=== PATIENT | male | born 1960 | race Caucasian/White ===

== ENCOUNTER 2017-05-16 07:06 | Emergency (ER) | payer BC ==
[2017-05-16 07:21] VITALS: BP 131/96
[2017-05-16] MEDS ORDERED: Doxycycline 100 MG Cap PO ONE (07:23)
[2017-05-16] MEDS ORDERED: Dexamethasone 4 MG Tab PO ONE (07:24)
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
== END 2017-05-16 07:40 | disposition home or self-care (01) ==
LOC: JD.ED 07:06
DX: S61.432A Puncture wound without foreign body of left hand, initial encounter (principal); W45.8XXA Other foreign body or object entering through skin, initial encounter; Z79.899 Other long term (current) drug therapy; E66.9 Obesity, unspecified
CPT/HCPCS: 99283; A9270; J8540

== ENCOUNTER 2018-12-31 21:13 | Emergency (ER) | payer BC ==
[2018-12-31 21:30] VITALS: BP 139/71
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
[2018-12-31] MEDS: HYDROmorphone 1 MG/ML Syringe IM ONE (22:16)
--- NOTE | 2019-01-02 10:16 | CR ---
Left shoulder: Three views of the left shoulder were obtained. Comparison: No prior shoulder study. Mild joint space narrowing is seen within the acromioclavicular joint. Glenohumeral joint appears within normal limits. No fracture or other bony abnormality is seen. Impression: 1. Mild joint space narrowing within the acromioclavicular joint. 2. Left shoulder study is otherwise unremarkable. Diagnostic code #2
== END 2018-12-31 23:33 | disposition home or self-care (01) ==
LOC: JD.ED 21:13 → SUPCPDRO 21:13 → JD.ED 23:33
DX: S46.912A Strain of unspecified muscle, fascia and tendon at shoulder and upper arm level, left arm, initial encounter (principal); F41.9 Anxiety disorder, unspecified; F32.9 Major depressive disorder, single episode, unspecified; F17.210 Nicotine dependence, cigarettes, uncomplicated; Z79.899 Other long term (current) drug therapy; Z88.1 Allergy status to other antibiotic agents; X58.XXXA Exposure to other specified factors, initial encounter
CPT/HCPCS: 73030; 96372; 99283; J1170

== ENCOUNTER 2019-03-30 08:24 | Day surgery (SDC) | payer BC ==
[~2019-03-30 08:24] MED LIST: EPINEPHrine 1 MG/1 ML Amp ONE; Lidocaine 1% 2 ML ONE; Lidocaine 1%/Sod Bicarbonate in NS 8.4% 1 ML Syringe IDERM PRN; Ropivacaine 0.5% 5 MG/ML 30 ML SDV ONE; Sodium Chloride 0.9% 10 ML Syringe FLUSH PRN
[2019-03-30] MEDS: Lactated Ringers 1,000 ML IV SCH ×2 (09:00→12:54)
--- NOTE | 2019-03-30 09:33 | PCM.PREANE ---
Preanesthetic Assessment - Anesthesia/Transfusion/Family Hx Anesthesia History: Prior Anesthesia Reaction Type of Anesthesia Reaction: Excessive Nausea/Vomiting Family History of Anesthesia Reaction: No Transfusion History: No Prior Transfusion(s) Intubation History: Unknown - Review of Systems General: No Symptoms, Fatigue Pulmonary: No Symptoms (TONYA with CPAP, Chew one can/week-last chew yesterday.) Cardiovascular: No Symptoms (History of HTN) Gastrointestinal: No Symptoms (GERD) Neurological: No Symptoms (Degenerative Disk disease L3-L4.) Other: Reports: Easy Bleeding, Liver Problems (elevated LFT's-quit drinking 38 years ago.), Depression, Anxiety - Physical Assessment NPO Status Date: 03/29/19 NPO Status Time: 21:30 Vital Signs: Last Vital Signs Temp 37.2 C 03/30/19 08:30 Pulse 71 03/30/19 08:30 Resp 16 03/30/19 08:30 BP 127/76 03/30/19 08:30 Pulse Ox 94 L 03/30/19 08:30 Height: 1.78 m Weight: 109.316 kg ASA Class: 2 Mental Status: Alert & Oriented x3 Airway Class: Mallampati = 2 Dentition: Reports: Normal Dentition, Caries Thyro-Mental Finger Breadths: 3 Mouth Opening Finger Breadths: 3 ROM/Head Extension: Full Lungs: Clear to Auscultation, Normal Respiratory Effort Cardiovascular: Regular Rate, Regular Rhythm, No Murmurs - Lab Values: Laboratory Last Values MRSA (PCR) Negative 03/22/19 14:59 All lab values reviewed and noted and within acceptable ranges to proceed with scheduled procedure. - Imaging/EKG Impressions: EKG: SR rate= 67 - Allergies Allergies/Adverse Reactions: Allergies Allergy/AdvReac Type Severity Reaction Status Date / Time celecoxib [From Celebrex] Allergy Rash Verified 03/29/19 13:04 - Anesthesia Plan Pre-Op Medication Ordered: None - Acknowledgements Anesthesia Type Planned: General Anesthesia (Left ISB under US guidance for post operative pain control requested by Dr. Babcock.) Pt an Appropriate Candidate for the Planned Anesthesia: Yes Alternatives and Risks of Anesthesia Discussed w Pt/Guardian: Yes Pt/Guardian Understands and Agrees with Anesthesia Plan: Yes PreAnesthesia Questionnaire HEENT History: Reports: Allergic Rhinitis, Impaired Vision Other HEENT History: uses reading glasses Cardiovascular History: Reports: Hypertension Respiratory History: Reports: Sleep Apnea Gastrointestinal History: Reports: GERD, Other (See Below) Other Gastrointestinal History: elevated LFTs Genitourinary History: Reports: Renal Calculus Other Genitourinary History: frequency 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: Reports: None Musculoskeletal History: Reports: Back Pain, Chronic Other Musculoskeletal History: degenerative disc disease Psychiatric History: Reports: Anxiety, Depression Endocrine/Metabolic History: Reports: Obesity/BMI 30+, Vitamin D Deficiency Hematologic History: Reports: Iron Deficiency Immunologic History: Reports: None Oncologic (Cancer) History: Reports: None Dermatologic History: Reports: None - Infectious Disease History Infectious Disease History: Reports: None - Past Surgical History HEENT Surgical History: Reports: Adenoidectomy, Oral Surgery, Tonsillectomy, Other (See Below) Other HEENT Surgeries/Procedures: uvulectomy Cardiovascular Surgical History: Reports: None Respiratory Surgical History: Reports: None GI Surgical History: Reports: Colonoscopy Male Surgical History: Reports: None, Vasectomy Endocrine Surgical History: Reports: None Neurological Surgical History: Reports: Laminectomy Musculoskeletal Surgical History: Reports: Knee Replacement, Shoulder Surgery Other Musculoskeletal Surgeries/Procedures:: L knee arthroscopy, knee surgery, shoulder surgery Oncologic Surgical History: Reports: None Dermatological Surgical History: Reports: None - SUBSTANCE USE Smoking Status *Q: Current Every Day Smoker Recreational Drug Use History: No - HOME MEDS Home Medications: Home Meds Cholecalciferol (Vitamin D3) [Vitamin D3] 1,000 unit PO DAILY 03/29/19 [History] Escitalopram Oxalate 20 mg PO DAILY 03/29/19 [History] Ferrous Sulfate [Iron] 325 mg PO DAILY 03/29/19 [History] Lansoprazole [Prevacid] 15 mg PO DAILY 03/29/19 [History] Losartan Potassium 100 mg PO DAILY 03/29/19 [History] Multivitamin [Daily Multiple Vitamin] 1 tab PO DAILY 03/29/19 [History] Acetaminophen/HYDROcodone [[place] 325-5 MG] 1 - 2 tab PO Q6H PRN #40 tablet 03/30 [Rx] Cyclobenzaprine [Flexeril] 10 mg PO Q12H PRN #30 tab 03/30/19 [Rx] - CURRENT (IN HOUSE) MEDS Current Meds: Current Medications Lactated Ringer's (Ringers, Lactated) 1,000 mls @ 125 mls/hr IV ASDIRECTED JUDI Stop: 03/30/19 23:00 Lidocaine/Sodium Bicarbonate (Buffered Lidocaine 1% In Ns 8.4%) 0.25 ml IDERM ONETIME PRN PRN Reason: Prior to IV Start Stop: 03/30/19 18:00 Sodium Chloride (Saline Flush) 10 ml FLUSH ASDIRECTED PRN PRN Reason: Keep Vein Open Stop: 03/30/19 18:00 Discontinued Medications Epinephrine HCl (Adrenalin) 3 mg .XX ONETIME ONE Stop: 03/30/19 07:01 Epinephrine HCl (Adrenalin) Confirm Administered Dose 1 mg .ROUTE .STK-MED ONE Stop: 03/30/19 07:07 Lidocaine HCl (Xylocaine-Mpf 1%) Confirm Administered Dose 2 mls @ as directed .ROUTE .STK-MED ONE Stop: 03/30/19 07:07 Ropivacaine (Naropin 0.5%) Confirm Administered Dose 30 ml .ROUTE .STK-MED ONE Stop: 03/30/19 07:07
[2019-03-30] MEDS ORDERED: Scopolamine 1.5 MG Transdermal Patch TRDERM ONE (10:00)
[2019-03-30] MEDS ORDERED: fentaNYL 250 MCG/5 ML SDV ONE (10:23)
[2019-03-30] MEDS ORDERED: Midazolam 1 MG/ML 2 ML SDV ONE (10:23)
[2019-03-30] MEDS ORDERED: Dexamethasone 4 MG/ML 5 ML MDV ONE (10:30)
[2019-03-30] MEDS ORDERED: ceFAZolin 1 GM Vial ONE (10:30)
[2019-03-30] MEDS ORDERED: Lidocaine 1% 4 ML ONE (10:30)
[2019-03-30] MEDS ORDERED: Lactated Ringers 0 ML ONE (10:30)
[2019-03-30] MEDS ORDERED: Ondansetron 4 MG/2 ML SDV ONE (10:30)
[2019-03-30] MEDS ORDERED: Propofol 200 MG/20 ML SDV ONE (10:30)
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
[2019-03-30] MEDS ORDERED: Rocuronium 50 MG/5 ML Vial ONE (12:48)
[2019-03-30] MEDS ORDERED: Phenylephrine/Normal Saline 100 MCG/ML 10 ML Syringe ONE (13:19)
[2019-03-30] MEDS ORDERED: Lactated Ringers 1,000 ML ONE (13:22)
[2019-03-30] MEDS ORDERED: ePHEDrine 50 MG/ML SDV IVPUSH PRN (13:25)
[2019-03-30] MEDS ORDERED: Ondansetron 4 MG/2 ML SDV IVPUSH PRN (13:25)
[2019-03-30] MEDS ORDERED: fentaNYL 100 MCG/2 ML SDV IVPUSH PRN (13:25)
[2019-03-30] MEDS ORDERED: HYDROmorphone 0.5 MG/0.5 ML Syringe IVPUSH PRN (13:25)
[2019-03-30] MEDS ORDERED: diphenhydrAMINE 50 MG/ML SDV IVPUSH PRN (13:25)
[2019-03-30] MEDS ORDERED: Albuterol 0.083% 2.5 MG/3 ML Neb Soln NEB PRN (13:25)
[2019-03-30] MEDS ORDERED: Haloperidol Lactate 5 MG/ML SDV IVPUSH ONE (13:25)
[2019-03-30] MEDS ORDERED: Phenylephrine 1 MG in Sodium Chloride 0.9% 10 ML IV SCH (13:30)
[2019-03-30] MEDS ORDERED: Neostigmine Methylsulfate 1 MG/ML 5 ML Syringe ONE (13:36)
[2019-03-30] MEDS: EPINEPHrine 1 MG/ML 30 ML MDV ONE ×2 (13:36→14:05)
[2019-03-30] MEDS ORDERED: ePHEDrine/Normal Saline 25 MG/5 ML Syringe ONE (13:38)
--- NOTE | 2019-03-30 14:43 | PCM.POSTAN ---
POST ANESTHESIA ASSESSMENT - MENTAL STATUS Mental Status: Alert - VITAL SIGNS Vital Signs: Last Vital Signs Temp 37.2 C 03/30/19 08:30 Pulse 71 03/30/19 08:30 Resp 16 03/30/19 11:20 BP 128/82 03/30/19 11:20 Pulse Ox 99 03/30/19 11:20 - RESPIRATORY Respiratory Status: Respiratory Rate WNL, Airway Patent, O2 Saturation Stable, Supplemental Oxygen - CARDIOVASCULAR CV Status: Pulse Rate WNL, Blood Pressure Stable - GASTROINTESTINAL GI Status: No Symptoms - PAIN Pain Score: 0 - POST OP HYDRATION Hydration Status: Adequate & Stable
--- NOTE | 2019-03-30 15:12 | PCM48HPAN ---
Post Anesthesia Note - EVALUATION WITHIN 48HRS OF ANESTHETIC Vital Signs in Normal Range: Yes Patient Participated in Evaluation: Yes Respiratory Function Stable: Yes (Baseline SpO2 94%. On 2L/NC at this time at 93 %. Titrate off as tolerated.) Airway Patent: Yes Cardiovascular Function Stable: Yes Hydration Status Stable: Yes Pain Control Satisfactory: Yes Nausea and Vomiting Control Satisfactory: Yes Mental Status Recovered: Yes Vital Signs: Last Vital Signs Temp 37.2 C 03/30/19 08:30 Pulse 71 03/30/19 08:30 Resp 16 03/30/19 11:20 BP 128/82 03/30/19 11:20 Pulse Ox 99 03/30/19 11:20
[2019-03-30] MEDS ORDERED: Acetaminophen/HYDROcodone 325-5 MG Tab PO PRN (20:11)
[2019-03-30] MEDS: Cyclobenzaprine 10 MG Tab PO SCH (23:49)
--- NOTE | 2019-03-31 00:24 | PCM48HPAN ---
Post Anesthesia Note - EVALUATION WITHIN 48HRS OF ANESTHETIC Vital Signs in Normal Range: Yes Patient Participated in Evaluation: Yes Respiratory Function Stable: Yes Airway Patent: Yes Cardiovascular Function Stable: Yes Hydration Status Stable: Yes Pain Control Satisfactory: Yes Nausea and Vomiting Control Satisfactory: Yes Mental Status Recovered: Yes Vital Signs: Last Vital Signs Temp 36.8 C 03/30/19 20:31 Pulse 99 03/30/19 20:31 Resp 20 03/30/19 20:31 BP 123/70 03/30/19 20:31 Pulse Ox 99 03/30/19 20:31 - COMMENTS/OBSERVATIONS Free Text/Narrative:: Anesthesia stopped by to check on patient. Patient sleeping supine in bed with CPAP on, and Spo2 = 93%. Patient doing well, should be good to discharge home in the morning.
[2019-03-31] MEDS: Cyclobenzaprine 10 MG Tab PO SCH (08:25)
[2019-03-31 09:41] VITALS: BP 128/75
--- NOTE | 2019-04-04 13:23 | PCM.OPNOTE ---
- General Post-Op/Procedure Note Date of Surgery/Procedure: 03/30/19 Operative Procedure(s): left shoulder video arthroscopy with rotator cuff repair and extensive debridement Pre Op Diagnosis: left shoulder rotator cuff tear Post-Op Diagnosis: Same Anesthesia Technique: General ET Tube, Regional Block Primary Surgeon: Arnie Babcokc Anesthesia Provider: Alpa Pederson Form Press Operator: Radha Bell in mLs: 5 Complications: None Condition: Good
--- NOTE | 2019-04-04 13:52 | OR ---
DATE OF OPERATION: 03/30/2019 SURGEON: Arnie Babcock MD OPERATION PERFORMED: Left shoulder video arthroscopy with rotator cuff repair and extensive debridement. PREOPERATIVE DIAGNOSIS: Left shoulder rotator cuff tear. POSTOPERATIVE DIAGNOSIS: Left shoulder rotator cuff tear. ANESTHESIA: General endotracheal intubation with regional interscalene block. ANESTHESIA PROVIDER: Alpa Pederson CRNA. INSTALLERS MECHANICAL: Radha Bell PA-C ESTIMATED BLOOD LOSS: 5 mL. COMPLICATIONS: None. CONDITION: Stable. DESCRIPTION OF PROCEDURE: The patient was identified in the preoperative holding area. Proper site was marked and identified by the surgeon. The patient was taken back to the operating theater, where after adequate anesthesia, the patient was placed in right lateral decubitus position. A wedge was placed posteriorly. The patient's left upper extremity was then sterilely prepped and draped in the usual sterile fashion. OR-wide time-out was performed. The patient received 2 g of IV Ancef. 12 pounds of traction was applied to the left upper extremity. Standard posterior incision was made. The scope trocar was introduced to the glenohumeral joint. The patient was noted to have a large full-thickness tear of the supraspinatus as well as just the anterior portion of infraspinatus. There were no chondromalacic changes. The biceps tendon was intact with no signs of erythema. The subscapularis tendon was intact. At this time, attention was turned to the subacromial space. The patient was noted to have significant amount of bursal tissue and an extensive debridement of the bursal tissue and undersurface of the acromion was then done at this time. Resector was then also used to debride the previous attachment of the rotator cuff back to a good bony bleeding bed. At this time, an Arthrex 4.75 mm SwiveLock anchor with 2 limbs of FiberWire and FiberTape were placed medially for a medial-row repair. The 2 limbs of FiberTape and the 4 limbs of FiberWire were then passed. The 4 limbs of FiberWire were then tied and 1 strand of each of it was cut, and then both, the 2 limbs of the FiberTape as well as 4 limbs of the FiberWire were brought out laterally and another lateral row anchor was then placed as well, with 4.75 mm Arthrex SwiveLock anchor. This was found to have adequate quaker of the footprint with watertight coverage. At this time, there were no other tears noted. Excess saline was drained from the patient's shoulder. 3- 0 nylon was used for closure of the portal incisions. The patient was placed in a sterile soft dressing and a pillow sling, and sent to PACU in a stable condition. ELI /[id number]
== END 2019-03-31 09:46 | disposition home or self-care (01) ==
LOC: JD.SDS 08:24 → JD.MS 17:13 → JD.SDS 03-31 09:46
PROVIDERS: ATTEND Orthopaedic Surgery
DX: M75.122 Complete rotator cuff tear or rupture of left shoulder, not specified as traumatic (principal); I10 Essential (primary) hypertension; E61.1 Iron deficiency; K21.9 Gastro-esophageal reflux disease without esophagitis; F41.9 Anxiety disorder, unspecified; F17.220 Nicotine dependence, chewing tobacco, uncomplicated; G47.33 Obstructive sleep apnea (adult) (pediatric); G89.18 Other acute postprocedural pain; M19.90 Unspecified osteoarthritis, unspecified site; Z88.6 Allergy status to analgesic agent; Z99.89 Dependence on other enabling machines and devices; Z96.652 Presence of left artificial knee joint; Z79.899 Other long term (current) drug therapy
CPT/HCPCS: 29827; 64415; 87641; 94640; A9270; C1713; J0171; J0690; J1100; J2001; J2250; J2370; J2405; J2704; J2710; J2795; J3010; J7050; J7120; 01630

== ENCOUNTER 2019-05-23 07:39 | Day surgery (SDC) | payer BC ==
[~2019-05-23 07:39] MED LIST changes: -EPINEPHrine 1 MG/1 ML Amp ONE; +Lactated Ringers 1,000 ML IV SCH; -Lidocaine 1% 2 ML ONE; +Lidocaine 1% 4 ML ONE; +Propofol 200 MG/20 ML SDV ONE; -Ropivacaine 0.5% 5 MG/ML 30 ML SDV ONE
--- NOTE | 2019-05-23 08:02 | PCM.PREANE ---
Preanesthetic Assessment - Procedure Proposed Procedure: colonoscopy - Anesthesia/Transfusion/Family Hx Anesthesia History: Prior Anesthesia Reaction Family History of Anesthesia Reaction: No Transfusion History: No Prior Transfusion(s) Intubation History: Unknown - Review of Systems General: No Symptoms Pulmonary: No Symptoms Cardiovascular: No Symptoms Gastrointestinal: No Symptoms Neurological: No Symptoms Other: Reports: Liver Problems (high enzymes) - Physical Assessment NPO Status Date: 05/22/19 NPO Status Time: 00:00 Height: 1.78 m Weight: 110.8 kg ASA Class: 2 Mental Status: Alert & Oriented x3 Airway Class: Mallampati = 2 Dentition: Reports: Normal Dentition Thyro-Mental Finger Breadths: 2 Mouth Opening Finger Breadths: 2 ROM/Head Extension: Full Lungs: Clear to Auscultation, Normal Respiratory Effort Cardiovascular: Regular Rate, Regular Rhythm - Allergies Allergies/Adverse Reactions: Allergies Allergy/AdvReac Type Severity Reaction Status Date / Time celecoxib [From Celebrex] Allergy Rash Verified 05/22/19 14:21 - Blood Blood Available: No Product(s) Available: None - Anesthesia Plan Pre-Op Medication Ordered: None - Acknowledgements Anesthesia Type Planned: MAC Pt an Appropriate Candidate for the Planned Anesthesia: Yes Alternatives and Risks of Anesthesia Discussed w Pt/Guardian: Yes Pt/Guardian Understands and Agrees with Anesthesia Plan: Yes PreAnesthesia Questionnaire HEENT History: Reports: Allergic Rhinitis, Impaired Vision Other HEENT History: uses reading glasses Cardiovascular History: Reports: Hypertension Respiratory History: Reports: Sleep Apnea Gastrointestinal History: Reports: GERD, Hemorrhoids, Other (See Below) Other Gastrointestinal History: elevated LFTs Genitourinary History: Reports: Renal Calculus Other Genitourinary History: frequency TALENT ENGINEER History: Reports: None Musculoskeletal History: Reports: Back Pain, Chronic Other Musculoskeletal History: degenerative disc disease, muscle cramps Neurological History: Reports: Other (See Below) Other Neuro History: degenerative disc disease, lumbar back pain Psychiatric History: Reports: Addiction, Anxiety, Depression Endocrine/Metabolic History: Reports: Obesity/BMI 30+, Vitamin D Deficiency Hematologic History: Reports: Iron Deficiency Immunologic History: Reports: None Oncologic (Cancer) History: Reports: None Dermatologic History: Reports: None - Infectious Disease History Infectious Disease History: Reports: None - Past Surgical History Head Surgeries/Procedures: Reports: None HEENT Surgical History: Reports: Adenoidectomy, LASIK, Oral Surgery, Tonsillectomy, Other (See Below) Other HEENT Surgeries/Procedures: uvulectomy Cardiovascular Surgical History: Reports: None Respiratory Surgical History: Reports: None GI Surgical History: Reports: Colonoscopy Male Surgical History: Reports: Vasectomy Endocrine Surgical History: Reports: None Neurological Surgical History: Reports: Laminectomy Musculoskeletal Surgical History: Reports: Arthroscopic Knee, Knee Replacement, Shoulder Surgery Other Musculoskeletal Surgeries/Procedures:: L knee arthroscopy, knee surgery, shoulder surgery Oncologic Surgical History: Reports: None Dermatological Surgical History: Reports: None - SUBSTANCE USE Smoking Status *Q: Never Smoker Tobacco Use Within Last Twelve Months: Snuff/Dip Second Hand Smoke Exposure: No Days Per Week of Alcohol Use: 0 Number of Drinks Per Day: 0 Total Drinks Per Week: 0 Recreational Drug Use History: No - HOME MEDS Home Medications: Home Meds Cholecalciferol (Vitamin D3) [Vitamin D3] 1,000 unit PO DAILY 03/29/19 [History] Escitalopram Oxalate 20 mg PO DAILY 03/29/19 [History] Ferrous Sulfate [Iron] 325 mg PO DAILY 03/29/19 [History] Lansoprazole [Prevacid] 15 mg PO DAILY 03/29/19 [History] Losartan Potassium 100 mg PO DAILY 03/29/19 [History] Multivitamin [Daily Multiple Vitamin] 1 tab PO DAILY 03/29/19 [History] buPROPion HCl [Bupropion Xl] 150 mg PO DAILY 05/22/19 [History] - CURRENT (IN HOUSE) MEDS Current Meds: Current Medications Lactated Ringer's (Ringers, Lactated) 1,000 mls @ 125 mls/hr IV ASDIRECTED JUDI Stop: 05/23/19 23:00 Lidocaine/Sodium Bicarbonate (Buffered Lidocaine 1% In Ns 8.4%) 0.25 ml IDERM ONETIME PRN PRN Reason: Prior to IV Start Stop: 05/23/19 18:00 Sodium Chloride (Saline Flush) 10 ml FLUSH ASDIRECTED PRN PRN Reason: Keep Vein Open Stop: 05/23/19 18:00 Discontinued Medications Lidocaine HCl (Xylocaine-Mpf 1%) Confirm Administered Dose 4 mls @ as directed .ROUTE .STK-MED ONE Stop: 05/23/19 07:12 Propofol (Diprivan 20 Ml) Confirm Administered Dose 200 mg .ROUTE .STK-MED ONE Stop: 05/23/19 07:12
[2019-05-23] MEDS ORDERED: Propofol 200 MG/20 ML SDV ONE ×2 (08:39→09:03)
--- NOTE | 2019-05-23 09:37 | PCM48HPAN ---
Post Anesthesia Note - EVALUATION WITHIN 48HRS OF ANESTHETIC Vital Signs in Normal Range: Yes Patient Participated in Evaluation: Yes Respiratory Function Stable: Yes Airway Patent: Yes Cardiovascular Function Stable: Yes Hydration Status Stable: Yes Pain Control Satisfactory: Yes Nausea and Vomiting Control Satisfactory: Yes Mental Status Recovered: Yes Vital Signs: Last Vital Signs Temp 36.8 C 05/23/19 07:50 Pulse 77 05/23/19 07:50 Resp 16 05/23/19 07:50 BP 129/78 05/23/19 07:50 Pulse Ox 95 05/23/19 07:50
--- NOTE | 2019-05-23 09:43 | PCM.PRGIL ---
Lower GI Endoscopy Procedure Procedure:: Reports: Colonoscopy Intervention:: Biopsy Performed By:: Gary Adair Date of Service:: 05/23/19 Informed Consent Obtained?: Yes Indications:: Reports: Screening, Family Hx Colon CA/Polyps Rectodigital Exam:: Reports: Other (external hemorrhoid) Sedation:: Reports: IV Depth Reached (Location):: Reports: Cecum Landmarks:: Reports: Cecum - Findings External Hemorrhoid Grade (1,2,3,4):: 4 Polyps (location):: Reports: Sigmoid, Cecum Polyp Type:: Reports: Other (sessile raised polyp ~1cm adjacent to ileocecal valve) Previous Colon Surgery (Location):: Reports: None Stenosis (Location):: Reports: None Complications:: Reports: None Cultures:: Reports: None (follow up in clinic regarding treatment of external hemorrhoid)
[2019-05-23 10:09] VITALS: BP 119/80; PULSE 68
--- NOTE | 2019-05-24 14:03 | PCM.PRNOTE ---
- Free Text/Narrative Note: 05/23/2019 Detailed report: The patient underwent MAC anesthesia and was placed in the left lateral decubitus position. A rectal exam was performed, revealing a 3 cm external hemorrhoid. The exam was otherwise normal. The colonoscope was inserted transanally and carefully advanced toward the cecum. The sigmoid colon was redundant and a bit difficult to navigate. No evidence of diverticular disease noted. The prep was satisfactory. The cecum was visualized, and a sessile polyp was noted at the IC valve. This was biopsied with jumbo forceps. A few polyps were noted at the distal sigmoid and rectum, all < 1 cm, and were biopsied in similar fashion. Abdominal manual pressure maneuvers were performed by nursing staff throughout the procedure to aid in advancement of the scope during the procedure. The procedure was completed without complication. No significant internal hemorrhoidal disease noted on retroflexion. Gary Adair MD General Surgery
== END 2019-05-23 10:12 | disposition home or self-care (01) ==
LOC: JD.SDS 07:39
PROVIDERS: ATTEND Surgery
DX: Z12.11 Encounter for screening for malignant neoplasm of colon (principal); D12.0 Benign neoplasm of cecum; K62.1 Rectal polyp; K64.3 Fourth degree hemorrhoids; Q43.8 Other specified congenital malformations of intestine; I10 Essential (primary) hypertension; E61.1 Iron deficiency; E55.9 Vitamin D deficiency, unspecified; E66.9 Obesity, unspecified; K21.9 Gastro-esophageal reflux disease without esophagitis; F41.9 Anxiety disorder, unspecified; F32.9 Major depressive disorder, single episode, unspecified; G47.33 Obstructive sleep apnea (adult) (pediatric); M19.90 Unspecified osteoarthritis, unspecified site; Z88.6 Allergy status to analgesic agent; Z87.891 Personal history of nicotine dependence; Z68.36 Body mass index [BMI] 36.0-36.9, adult; Z80.0 Family history of malignant neoplasm of digestive organs; Z83.71 Family history of colonic polyps; Z79.899 Other long term (current) drug therapy
CPT/HCPCS: 45380; J2001; J2704; J7120; 00812

== ENCOUNTER → 2019-11-30 | Day surgery (SDC) | payer BC ==
[~2019-11-30] MED LIST changes: +fentaNYL 100 MCG/2 ML SDV ONE
--- NOTE | 2019-11-30 07:37 | PCM.HP.2 ---
H&P History of Present Illness - General Date of Service: 11/30/19 Admit Problem/Dx: sessile serrated adenoma Source of Information: Patient History Limitations: Reports: No Limitations - History of Present Illness Other HPI/Comments: Mr. Nicholas underwent screening colonoscopy 6 months ago and was found to have a sessile serrated adenoma at the cecum that was probably not completely resected at the time. Plan for repeat colonoscopy now for reassessment. - Related Data Allergies/Adverse Reactions: Allergies Allergy/AdvReac Type Severity Reaction Status Date / Time celecoxib [From Celebrex] Allergy Rash Verified 11/29/19 12:59 Home Medications: Home Meds Cholecalciferol (Vitamin D3) [Vitamin D3] 10,000 unit PO DAILY 03/29/19 [History ] Escitalopram Oxalate 20 mg PO DAILY 03/29/19 [History] Ferrous Sulfate [Iron] 325 mg PO DAILY 03/29/19 [History] Lansoprazole [Prevacid] 15 mg PO DAILY 03/29/19 [History] Losartan Potassium 100 mg PO DAILY 03/29/19 [History] Multivitamin [Daily Multiple Vitamin] 1 tab PO DAILY 03/29/19 [History] buPROPion HCL [Wellbutrin Xl] 300 mg PO DAILY 11/29/19 [History] Past Medical History HEENT History: Reports: Allergic Rhinitis, Impaired Vision Other HEENT History: uses reading glasses Cardiovascular History: Reports: Hypertension Respiratory History: Reports: Sleep Apnea Gastrointestinal History: Reports: GERD, Hemorrhoids, Other (See Below) Other Gastrointestinal History: elevated LFTs Genitourinary History: Reports: Renal Calculus Other Genitourinary History: frequency PREPRINT ANALYST History: Reports: None Musculoskeletal History: Reports: Back Pain, Chronic Other Musculoskeletal History: degenerative disc disease, muscle cramps Neurological History: Reports: Other (See Below) Other Neuro History: degenerative disc disease, lumbar back pain Psychiatric History: Reports: Addiction, Anxiety, Depression Endocrine/Metabolic History: Reports: Obesity/BMI 30+, Vitamin D Deficiency Hematologic History: Reports: None, Iron Deficiency Immunologic History: Reports: None Oncologic (Cancer) History: Reports: None Dermatologic History: Reports: None - Infectious Disease History Infectious Disease History: Reports: None - Past Surgical History Head Surgeries/Procedures: Reports: None HEENT Surgical History: Reports: Adenoidectomy, LASIK, Oral Surgery, Tonsillectomy, Other (See Below) Other HEENT Surgeries/Procedures: uvulectomy Cardiovascular Surgical History: Reports: None Respiratory Surgical History: Reports: None GI Surgical History: Reports: Colonoscopy Male Surgical History: Reports: Vasectomy Endocrine Surgical History: Reports: None Neurological Surgical History: Reports: Laminectomy Musculoskeletal Surgical History: Reports: Arthroscopic Knee, Knee Replacement, Shoulder Surgery Other Musculoskeletal Surgeries/Procedures:: L knee arthroscopy, knee surgery, shoulder surgery Oncologic Surgical History: Reports: None Dermatological Surgical History: Reports: None Social & Family History - Family History Family Medical History: Noncontributory Oncologic: Reports: Lung - Tobacco Use Smoking Status *Q: Current Every Day Smoker Years of Tobacco use: 40 Packs/Tins Daily: 0.2 - Caffeine Use Caffeine Use: Reports: Coffee - Recreational Drug Use Recreational Drug Use: No Drug Use in Last 12 Months: No - Living Situation & Occupation Living situation: Reports: , with Spouse Occupation: Employed ([employer]) H&P Review of Systems - Review of Systems: Review Of Systems: See Below General: Reports: No Symptoms HEENT: Reports: No Symptoms Pulmonary: Reports: No Symptoms Cardiovascular: Reports: No Symptoms Gastrointestinal: Reports: No Symptoms Genitourinary: Reports: No Symptoms Musculoskeletal: Reports: No Symptoms Exam - Exam Exam: See Below - Exam General: Alert, Oriented HEENT: Conjunctiva Clear Neck: Supple, Trachea Midline Lungs: Clear to Auscultation Cardiovascular: Regular Rate GI/Abdominal Exam: Soft Skin: Warm, Dry, Intact Neuro Extensive - Mental Status: Alert, Oriented x3 Psychiatric: Normal Mood *Q Meaningful Use (ADM) - VTE Risk Assess *Q Each Risk Factor Represents 2 Points: Age 60 - 74 Years Total Score 2 Point Risk Factors: 2 Problem List Initiated/Reviewed/Updated: Yes Orders Last 24hrs: Active Orders 24 hr Category Date Time Status Peripheral IV Care [RC] . DIRECTED Care 11/30/19 00:01 Active Verify Patient Consent Obtain [RC] ASDIRECTED Care 11/30/19 00:01 Active Lactated Ringers [Ringers, Lactated] 1,000 ml Med 11/30/19 00:01 Active IV ASDIRECTED Lidocaine 1%/Sod Bicarbonate [Buffered Lidocaine 1% in Med 11/30/19 00:01 Active NS 8.4%] 0.25 ml IDERM ONETIME PRN Sodium Chloride 0.9% [Saline Flush] Med 11/30/19 00:01 Active 10 ml FLUSH ASDIRECTED PRN Medication Administration Instruction [OM.PC] Routine Oth 11/30/19 00:01 Ordered Peripheral IV Insertion Adult [OM.PC] Routine Oth 11/30/19 00:01 Ordered Medication Orders Lactated Ringer's (Ringers, Lactated) 1,000 mls @ 125 mls/hr IV ASDIRECTED JUDI Stop: 11/30/19 23:00 Lidocaine/Sodium Bicarbonate (Buffered Lidocaine 1% In Ns 8.4%) 0.25 ml IDERM ONETIME PRN PRN Reason: Prior to IV Start Stop: 11/30/19 18:00 Sodium Chloride (Saline Flush) 10 ml FLUSH ASDIRECTED PRN PRN Reason: Keep Vein Open Stop: 11/30/19 18:00 Assessment/Plan Comment:: repeat colonoscopy 6 months after partial excision of sessile serrated adenoma near the cecum. - Mortality Measure Prognosis:: Good
--- NOTE | 2019-11-30 08:03 | PCM.PREANE ---
Preanesthetic Assessment - Procedure Proposed Procedure: Colonoscopy - Anesthesia/Transfusion/Family Hx Anesthesia History: Prior Anesthesia Reaction Transfusion History: No Prior Transfusion(s) Intubation History: Unknown - Review of Systems General: No Symptoms Pulmonary: No Symptoms Cardiovascular: No Symptoms Gastrointestinal: No Symptoms Neurological: No Symptoms Other: Reports: None - Physical Assessment NPO Status Date: 11/30/19 NPO Status Time: 04:00 (CLQ) Vital Signs: Last Vital Signs Temp 97.3 F 11/30/19 07:25 Pulse 63 11/30/19 07:25 Resp 16 11/30/19 07:25 BP 122/83 11/30/19 07:25 Pulse Ox 95 11/30/19 07:25 Weight: 108 kg ASA Class: 2 Mental Status: Alert & Oriented x3 Airway Class: Mallampati = 2 Dentition: Reports: Normal Dentition Thyro-Mental Finger Breadths: 3 Mouth Opening Finger Breadths: 3 ROM/Head Extension: Full Lungs: Clear to Auscultation, Normal Respiratory Effort Cardiovascular: Regular Rate, Regular Rhythm - Allergies Allergies/Adverse Reactions: Allergies Allergy/AdvReac Type Severity Reaction Status Date / Time celecoxib [From Celebrex] Allergy Rash Verified 11/29/19 12:59 - Acknowledgements Anesthesia Type Planned: MAC Pt an Appropriate Candidate for the Planned Anesthesia: Yes Alternatives and Risks of Anesthesia Discussed w Pt/Guardian: Yes Pt/Guardian Understands and Agrees with Anesthesia Plan: Yes PreAnesthesia Questionnaire HEENT History: Reports: Allergic Rhinitis, Impaired Vision Other HEENT History: uses reading glasses Cardiovascular History: Reports: Hypertension Respiratory History: Reports: Sleep Apnea Gastrointestinal History: Reports: GERD, Hemorrhoids, Other (See Below) Other Gastrointestinal History: elevated LFTs Genitourinary History: Reports: Renal Calculus Other Genitourinary History: frequency MOCCASIN SEWER History: Reports: None Musculoskeletal History: Reports: Back Pain, Chronic Other Musculoskeletal History: degenerative disc disease, muscle cramps Neurological History: Reports: Other (See Below) Other Neuro History: degenerative disc disease, lumbar back pain Psychiatric History: Reports: Addiction, Anxiety, Depression Endocrine/Metabolic History: Reports: Obesity/BMI 30+, Vitamin D Deficiency Hematologic History: Reports: None, Iron Deficiency Immunologic History: Reports: None Oncologic (Cancer) History: Reports: None Dermatologic History: Reports: None - Infectious Disease History Infectious Disease History: Reports: None - Past Surgical History Head Surgeries/Procedures: Reports: None HEENT Surgical History: Reports: Adenoidectomy, LASIK, Oral Surgery, Tonsillectomy, Other (See Below) Other HEENT Surgeries/Procedures: uvulectomy Cardiovascular Surgical History: Reports: None Respiratory Surgical History: Reports: None GI Surgical History: Reports: Colonoscopy Male Surgical History: Reports: Vasectomy Endocrine Surgical History: Reports: None Neurological Surgical History: Reports: Laminectomy Musculoskeletal Surgical History: Reports: Arthroscopic Knee, Knee Replacement, Shoulder Surgery Other Musculoskeletal Surgeries/Procedures:: L knee arthroscopy, knee surgery, shoulder surgery Oncologic Surgical History: Reports: None Dermatological Surgical History: Reports: None - SUBSTANCE USE Smoking Status *Q: Current Every Day Smoker Tobacco Use Within Last Twelve Months: Snuff/Dip Recreational Drug Use History: No - HOME MEDS Home Medications: Home Meds Cholecalciferol (Vitamin D3) [Vitamin D3] 10,000 unit PO DAILY 03/29/19 [History ] Escitalopram Oxalate 20 mg PO DAILY 03/29/19 [History] Ferrous Sulfate [Iron] 325 mg PO DAILY 03/29/19 [History] Lansoprazole [Prevacid] 15 mg PO DAILY 03/29/19 [History] Losartan Potassium 100 mg PO DAILY 03/29/19 [History] Multivitamin [Daily Multiple Vitamin] 1 tab PO DAILY 03/29/19 [History] buPROPion HCL [Wellbutrin Xl] 300 mg PO DAILY 11/29/19 [History] - CURRENT (IN HOUSE) MEDS Current Meds: Current Medications Lactated Ringer's (Ringers, Lactated) 1,000 mls @ 125 mls/hr IV ASDIRECTED JUDI Stop: 11/30/19 23:00 Lidocaine/Sodium Bicarbonate (Buffered Lidocaine 1% In Ns 8.4%) 0.25 ml IDERM ONETIME PRN PRN Reason: Prior to IV Start Stop: 11/30/19 18:00 Sodium Chloride (Saline Flush) 10 ml FLUSH ASDIRECTED PRN PRN Reason: Keep Vein Open Stop: 11/30/19 18:00 Discontinued Medications Fentanyl (Sublimaze) Confirm Administered Dose 100 mcg .ROUTE .STK-MED ONE Stop: 11/30/19 07:28 Lidocaine HCl (Xylocaine-Mpf 1%) Confirm Administered Dose 4 mls @ as directed .ROUTE .STK-MED ONE Stop: 11/30/19 07:28 Propofol (Diprivan 20 Ml) Confirm Administered Dose 400 mg .ROUTE .STK-MED ONE Stop: 11/30/19 07:28
--- NOTE | 2019-11-30 08:35 | PCM.PRNOTE ---
- Free Text/Narrative Note: Date: 11/30/2019 Procedure: colonoscopy Indication: incomplete resection of sessile serrated adenoma 6 months ago Endoscopist: Gary Adair MD Findings: No significant hemorrhoidal disease. Palpable hypertrophied anal papillae. Prep was very good. Lesion resting right at the appendiceal orifice, not grossly different from prior colonoscopy. This was resected piecemeal with forceps and the remaining abnormal tissue thoroughly fulgurated. Detailed Report: The patient was taken to the endoscopy suite and placed in left lateral decubitus position. Time out was performed and monitored anesthesia care initiated. No external hemorrhoids visible. Digital exam significant only for palpable hypertrophied anal papillae. The colonoscope was inserted anally and advanced to the cecum without difficulty. The prep was good. At the appendiceal orifice was a broad-based fungating polypoid lesion measuring about 1 cm in greatest dimension. The lesion was resected piecemeal with forceps, and the remaining tissue thoroughly fulgurated with monopolar energy. It was difficult to truly ascertain how much the lesion extended within the appendiceal lumen. The scope was then slowly withdrawn and mucosal surfaces were carefully inspected. No additional polyps were noted. Papillae were again noted on retroflexion of the scope within the rectum. The patient tolerated the procedure well. If the pathology shows the expected findings of sessile serrated adenoma without evidence of dysplasia or malignancy, I will discuss repeat colonoscopy in one year vs appendectomy with partial cecectomy. Gary Adair MD General Surgery
--- NOTE | 2019-11-30 08:49 | PCM48HPAN ---
Post Anesthesia Note - EVALUATION WITHIN 48HRS OF ANESTHETIC Vital Signs in Normal Range: Yes Patient Participated in Evaluation: Yes Respiratory Function Stable: Yes Airway Patent: Yes Cardiovascular Function Stable: Yes Hydration Status Stable: Yes Pain Control Satisfactory: Yes Nausea and Vomiting Control Satisfactory: Yes Mental Status Recovered: Yes Vital Signs: Last Vital Signs Temp 97.0 F 11/30/19 08:26 Pulse 70 11/30/19 08:26 Resp 18 11/30/19 08:26 BP 143/94 H 11/30/19 08:26 Pulse Ox 93 L 11/30/19 08:26
[2019-11-30 09:17] VITALS: BP 103/85; PULSE 62
== END | disposition home or self-care (01) ==
LOC: JD.SDS 06:51
PROVIDERS: ATTEND Surgery
DX: D12.0 Benign neoplasm of cecum (principal); I10 Essential (primary) hypertension; K21.9 Gastro-esophageal reflux disease without esophagitis; F41.9 Anxiety disorder, unspecified; F32.9 Major depressive disorder, single episode, unspecified; F17.210 Nicotine dependence, cigarettes, uncomplicated; E66.9 Obesity, unspecified; Z88.8 Allergy status to other drugs, medicaments and biological substances; Z79.899 Other long term (current) drug therapy; Z68.34 Body mass index [BMI] 34.0-34.9, adult
CPT/HCPCS: 45380; J2001; J2704; J3010; J7120

== ENCOUNTER → 2019-12-07 | Day surgery (SDC) | payer BC ==
[~2019-12-07] MED LIST changes: +HYDROmorphone 0.5 MG/0.5 ML Syringe ONE; +Midazolam 1 MG/ML 2 ML SDV ONE; +Ondansetron 4 MG/2 ML SDV ONE; +Rocuronium 50 MG/5 ML Vial ONE; +ceFAZolin 1 GM Vial ONE; +fentaNYL 100 MCG/2 ML SDV IVPUSH PRN; -fentaNYL 100 MCG/2 ML SDV ONE; +fentaNYL 250 MCG/5 ML SDV ONE; +oxyCODONE 5 MG Tab PO SCH
--- NOTE | 2019-12-07 07:20 | PCM.PREANE ---
Preanesthetic Assessment - Procedure Proposed Procedure: Laparoscopic Appendectomy - Anesthesia/Transfusion/Family Hx Anesthesia History: Prior Anesthesia Reaction Family History of Anesthesia Reaction: No Transfusion History: No Prior Transfusion(s) Intubation History: Unknown - Review of Systems General: No Symptoms Pulmonary: No Symptoms Cardiovascular: No Symptoms Gastrointestinal: No Symptoms Neurological: No Symptoms Other: Reports: Liver Problems ("high enzimes") - Physical Assessment NPO Status Date: 12/06/19 NPO Status Time: 00:00 Height: 1.78 m Weight: 108.409 kg ASA Class: 2 Mental Status: Alert & Oriented x3 Airway Class: Mallampati = 1 Dentition: Reports: Normal Dentition Thyro-Mental Finger Breadths: 3 Mouth Opening Finger Breadths: 3 ROM/Head Extension: Full Lungs: Clear to Auscultation, Normal Respiratory Effort Cardiovascular: Regular Rate, Regular Rhythm - Allergies Allergies/Adverse Reactions: Allergies Allergy/AdvReac Type Severity Reaction Status Date / Time celecoxib [From Celebrex] Allergy Rash Verified 12/06/19 14:08 - Anesthesia Plan Pre-Op Medication Ordered: None - Acknowledgements Anesthesia Type Planned: General Anesthesia Pt an Appropriate Candidate for the Planned Anesthesia: Yes Alternatives and Risks of Anesthesia Discussed w Pt/Guardian: Yes Pt/Guardian Understands and Agrees with Anesthesia Plan: Yes PreAnesthesia Questionnaire HEENT History: Reports: Allergic Rhinitis, Impaired Vision Other HEENT History: uses reading glasses Cardiovascular History: Reports: Hypertension Respiratory History: Reports: Sleep Apnea Gastrointestinal History: Reports: GERD, Hemorrhoids, Other (See Below) Other Gastrointestinal History: elevated LFTs Genitourinary History: Reports: Renal Calculus Other Genitourinary History: frequency TECHNICAL SUPPORT ENGINEER History: Reports: None Musculoskeletal History: Reports: Back Pain, Chronic Other Musculoskeletal History: degenerative disc disease, muscle cramps Neurological History: Reports: Other (See Below) Other Neuro History: degenerative disc disease, lumbar back pain Psychiatric History: Reports: Addiction, Anxiety, Depression Endocrine/Metabolic History: Reports: Obesity/BMI 30+, Vitamin D Deficiency Hematologic History: Reports: None, Iron Deficiency Immunologic History: Reports: None Oncologic (Cancer) History: Reports: None Dermatologic History: Reports: None - Infectious Disease History Infectious Disease History: Reports: None - Past Surgical History Head Surgeries/Procedures: Reports: None HEENT Surgical History: Reports: Adenoidectomy, LASIK, Oral Surgery, Tonsillectomy, Other (See Below) Other HEENT Surgeries/Procedures: uvulectomy Cardiovascular Surgical History: Reports: None Respiratory Surgical History: Reports: None GI Surgical History: Reports: Colonoscopy Male Surgical History: Reports: Vasectomy Endocrine Surgical History: Reports: None Neurological Surgical History: Reports: Laminectomy Musculoskeletal Surgical History: Reports: Arthroscopic Knee, Knee Replacement, Shoulder Surgery Other Musculoskeletal Surgeries/Procedures:: L knee arthroscopy, knee surgery, shoulder surgery Oncologic Surgical History: Reports: None Dermatological Surgical History: Reports: None - SUBSTANCE USE Smoking Status *Q: Current Every Day Smoker Tobacco Use Within Last Twelve Months: Snuff/Dip Recreational Drug Use History: No - HOME MEDS Home Medications: Home Meds Cholecalciferol (Vitamin D3) [Vitamin D3] 10,000 unit PO DAILY 03/29/19 [History ] Escitalopram Oxalate 20 mg PO DAILY 03/29/19 [History] Ferrous Sulfate [Iron] 325 mg PO DAILY 03/29/19 [History] Lansoprazole [Prevacid] 15 mg PO DAILY 03/29/19 [History] Losartan Potassium 100 mg PO DAILY 03/29/19 [History] Multivitamin [Daily Multiple Vitamin] 1 tab PO DAILY 03/29/19 [History] buPROPion HCL [Wellbutrin Xl] 300 mg PO DAILY 11/29/19 [History] - CURRENT (IN HOUSE) MEDS Current Meds: Current Medications Lactated Ringer's (Ringers, Lactated) 1,000 mls @ 125 mls/hr IV ASDIRECTED JUDI Stop: 12/07/19 23:00 Lidocaine/Sodium Bicarbonate (Buffered Lidocaine 1% In Ns 8.4%) 0.25 ml IDERM ONETIME PRN PRN Reason: Prior to IV Start Stop: 12/07/19 23:00 Sodium Chloride (Saline Flush) 10 ml FLUSH ASDIRECTED PRN PRN Reason: Keep Vein Open Stop: 12/07/19 23:00
--- NOTE | 2019-12-07 07:56 | PCM.HP.2 ---
H&P History of Present Illness - General Date of Service: 12/07/19 Admit Problem/Dx: sessile serrated adenoma at appendix Source of Information: Patient History Limitations: Reports: No Limitations - History of Present Illness Other HPI/Comments: Underwent recent repeat colonoscopy for assessment of sessile serrated adenomatous lesion at appendiceal orifice. Though this was removed piecemeal with remaining tissue fulgurated, plan for appendectomy today to ensure complete excision. - Related Data Allergies/Adverse Reactions: Allergies Allergy/AdvReac Type Severity Reaction Status Date / Time celecoxib [From Celebrex] Allergy Rash Verified 12/06/19 14:08 Home Medications: Home Meds Cholecalciferol (Vitamin D3) [Vitamin D3] 10,000 unit PO DAILY 03/29/19 [History ] Escitalopram Oxalate 20 mg PO DAILY 03/29/19 [History] Ferrous Sulfate [Iron] 325 mg PO DAILY 03/29/19 [History] Lansoprazole [Prevacid] 15 mg PO DAILY 03/29/19 [History] Losartan Potassium 100 mg PO DAILY 03/29/19 [History] Multivitamin [Daily Multiple Vitamin] 1 tab PO DAILY 03/29/19 [History] buPROPion HCL [Wellbutrin Xl] 300 mg PO DAILY 11/29/19 [History] Past Medical History HEENT History: Reports: Allergic Rhinitis, Impaired Vision Other HEENT History: uses reading glasses Cardiovascular History: Reports: Hypertension Respiratory History: Reports: Sleep Apnea Gastrointestinal History: Reports: GERD, Hemorrhoids, Other (See Below) Other Gastrointestinal History: elevated LFTs Genitourinary History: Reports: Renal Calculus Other Genitourinary History: frequency CAPTAIN WAITER History: Reports: None Musculoskeletal History: Reports: Back Pain, Chronic Other Musculoskeletal History: degenerative disc disease, muscle cramps Neurological History: Reports: Other (See Below) Other Neuro History: degenerative disc disease, lumbar back pain Psychiatric History: Reports: Addiction, Anxiety, Depression Endocrine/Metabolic History: Reports: Obesity/BMI 30+, Vitamin D Deficiency Hematologic History: Reports: None, Iron Deficiency Immunologic History: Reports: None Oncologic (Cancer) History: Reports: None Dermatologic History: Reports: None - Infectious Disease History Infectious Disease History: Reports: None - Past Surgical History Head Surgeries/Procedures: Reports: None HEENT Surgical History: Reports: Adenoidectomy, LASIK, Oral Surgery, Tonsillectomy, Other (See Below) Other HEENT Surgeries/Procedures: uvulectomy Cardiovascular Surgical History: Reports: None Respiratory Surgical History: Reports: None GI Surgical History: Reports: Colonoscopy Male Surgical History: Reports: Vasectomy Endocrine Surgical History: Reports: None Neurological Surgical History: Reports: Laminectomy Musculoskeletal Surgical History: Reports: Arthroscopic Knee, Knee Replacement, Shoulder Surgery Other Musculoskeletal Surgeries/Procedures:: L knee arthroscopy, knee surgery, shoulder surgery Oncologic Surgical History: Reports: None Dermatological Surgical History: Reports: None Social & Family History - Family History Family Medical History: Noncontributory Oncologic: Reports: Lung - Tobacco Use Smoking Status *Q: Current Every Day Smoker - Caffeine Use Caffeine Use: Reports: Coffee - Recreational Drug Use Recreational Drug Use: No - Living Situation & Occupation Living situation: Reports: , with Spouse Occupation: Employed ([employer]) H&P Review of Systems - Review of Systems: Review Of Systems: See Below General: Reports: No Symptoms HEENT: Reports: No Symptoms Pulmonary: Reports: No Symptoms Cardiovascular: Reports: No Symptoms Gastrointestinal: Reports: No Symptoms Exam - Exam Exam: See Below - Vital Signs Vital Signs: Last Vital Signs Temp 36.4 C 12/07/19 07:00 Pulse 64 12/07/19 07:00 Resp 16 12/07/19 07:00 BP 134/84 12/07/19 07:00 Pulse Ox 96 12/07/19 07:00 Weight: 108.409 kg - Exam General: Alert, Oriented HEENT: Conjunctiva Clear Neck: Supple Lungs: Clear to Auscultation Cardiovascular: Regular Rate GI/Abdominal Exam: Soft Skin: Warm, Dry Psychiatric: Normal Mood Sepsis Event Note - Evaluation Sepsis Screening Result: No Definite Risk - Focused Exam Vital Signs: Vital Signs Temp Pulse Resp BP Pulse Ox 12/07/19 07:00 36.4 C 64 16 134/84 96 Date Exam was Performed: 12/07/19 Time Exam was Performed: 07:53 *Q Meaningful Use (ADM) - VTE Risk Assess *Q Each Risk Factor Represents 2 Points: Age 60 - 74 Years Total Score 2 Point Risk Factors: 2 Problem List Initiated/Reviewed/Updated: Yes Orders Last 24hrs: Active Orders 24 hr Category Date Time Status Peripheral IV Care [RC] . DIRECTED Care 12/07/19 00:01 Active Verify Patient Consent Obtain [RC] ASDIRECTED Care 12/07/19 00:01 Active Lactated Ringers [Ringers, Lactated] 1,000 ml Med 12/07/19 00:01 Active IV ASDIRECTED Lidocaine 1%/Sod Bicarbonate [Buffered Lidocaine 1% in Med 12/07/19 00:01 Active NS 8.4%] 0.25 ml IDERM ONETIME PRN Sodium Chloride 0.9% [Saline Flush] Med 12/07/19 00:01 Active 10 ml FLUSH ASDIRECTED PRN Medication Administration Instruction [OM.PC] Routine Oth 12/07/19 00:01 Ordered Peripheral IV Insertion Adult [OM.PC] Routine Oth 12/07/19 00:01 Ordered Medication Orders Lactated Ringer's (Ringers, Lactated) 1,000 mls @ 125 mls/hr IV ASDIRECTED JUDI Stop: 12/07/19 23:00 Last Admin: 12/07/19 07:20 Dose: 125 mls/hr Lidocaine/Sodium Bicarbonate (Buffered Lidocaine 1% In Ns 8.4%) 0.25 ml IDERM ONETIME PRN PRN Reason: Prior to IV Start Stop: 12/07/19 23:00 Last Admin: 12/07/19 07:20 Dose: 0.25 ml Sodium Chloride (Saline Flush) 10 ml FLUSH ASDIRECTED PRN PRN Reason: Keep Vein Open Stop: 12/07/19 23:00 Assessment/Plan Comment:: Sessile serrated adenoma at appendiceal orifice. Plan for laparoscopic appendectomy with partial cecectomy today to ensure complete excision. - Mortality Measure Prognosis:: Good
[2019-12-07] MEDS: Bupivacaine 0.5%/EPINEPHrine 1:200,000 50 ML MDV ONE ×2 (08:30→08:40)
--- NOTE | 2019-12-07 09:38 | PCM.PRNOTE ---
- Free Text/Narrative Note: Date: 12/07/2019 Operation: laparoscopic appendectomy Indication: sessile serrated adenoma at appendiceal orifice Surgeon: Gary Adair MD Body Liner: Mitch SERNA Pre-op Antibiotic: 2 g cefoxitin IV EBL: 10 cc Specimen: appendix Findings: retrocecal appendix, cecal serosal discoloration near base of appendix seen likely corresponding to site of prior endoscopic fulguration, included in specimen. Detailed Report: The patient was taken to the operating room and placed on the table in supine position. Timeout was performed, and general endotracheal anesthesia initiated. The left arm was tucked at the patient side, and the abdomen was clipped, prepped and draped in usual sterile fashion. 0.5% Marcaine with epinephrine was used for local anesthetic of planned incision sites. Local anesthetic was injected at Whitt[place] point, along the left subcostal margin even with the midclavicular line. A small stab incision was made, and the Veress needle was inserted carefully into the peritoneal cavity. The abdomen was insufflated to 15 mmHg. Local anesthetic was injected at the infraumbilical incision site. A curvilinear incision was made just inferior to the umbilicus, and a bladed 12 mm port was inserted in the abdomen. A 30 degree 5 mm laparoscope was inserted and abdominal contents were inspected. No injury during abdominal access was noted, and the Veress needle was removed. Under visualization with the laparoscope, additional 5 mm ports were placed, one at the suprapubic region along the midline, and one in the left lower quadrant. The patient was positioned in Trendelenburg with the left side rotated towards the surgeon. The cecum was visualized. The appendix appeared to lay in a retrocecal position. Cecal adhesions and lateral attachments were dissected in order to provide mobility and better exposure of the appendix. There did appear to be a small area of serosal discoloration of the cecum near the base of the appendix, which I believe corresponds to the area of prior fulguration of the adenoma seen on colonoscopy. Dissection proceeded with the [place] LigaSure in order to create a window at the base the appendix and allow positioning of the stapler to take a small portion of the cecum with the appendix to ensure complete removal of the lesion in question. A 45 mm white load on the laparoscopic TANYA linear stapler was used to divide the cecum just distal to the takeoff of the appendix. Associated mesentery was taken with the [place] LigaSure. The specimen was placed in an Endo Catch and removed through the umbilical incision site. The dissection field appeared hemostatic, and a small amount of irrigation was used to clean and inspect the staple line. Fluid in the dissection bed was then suctioned. The specimen was inspected prior to being sent to the pathology department, and was opened longitudinally with a scalpel. It was difficult to appreciate any adenomatous lesion within the lumen of the appendix. A 0 Vicryl suture on laparoscopic suture passer was used to close the larger infraumbilical incision at the fascia. Pneumoperitoneum was then released, and remaining ports removed. All incision sites were closed at the level of the skin with absorbable suture, and wounds were dressed with Dermabond. The patient tolerated the procedure well. Gary Adair MD General Surgery
--- NOTE | 2019-12-07 09:44 | PCM.POSTAN ---
POST ANESTHESIA ASSESSMENT - MENTAL STATUS Mental Status: Alert, Oriented - VITAL SIGNS Vital Signs: Last Vital Signs Temp 36.4 C 12/07/19 07:00 Pulse 64 12/07/19 07:00 Resp 16 12/07/19 07:00 BP 134/84 12/07/19 07:00 Pulse Ox 96 12/07/19 07:00 - RESPIRATORY Respiratory Status: Respiratory Rate WNL, Airway Patent, O2 Saturation Stable, Supplemental Oxygen - CARDIOVASCULAR CV Status: Pulse Rate WNL, Blood Pressure Stable - GASTROINTESTINAL GI Status: No Symptoms - PAIN Pain Score: 0 - POST OP HYDRATION Hydration Status: Adequate & Stable - OBSERVATIONS Free Text/Narrative:: no anesthesia complications noted
--- NOTE | 2019-12-07 10:24 | PCM48HPAN ---
Post Anesthesia Note - EVALUATION WITHIN 48HRS OF ANESTHETIC Vital Signs in Normal Range: Yes Patient Participated in Evaluation: Yes Respiratory Function Stable: Yes Airway Patent: Yes Cardiovascular Function Stable: Yes Hydration Status Stable: Yes Pain Control Satisfactory: Yes Nausea and Vomiting Control Satisfactory: Yes Mental Status Recovered: Yes Vital Signs: Last Vital Signs Temp 36.7 C 12/07/19 10:15 Pulse 83 12/07/19 10:15 Resp 10 L 12/07/19 10:15 BP 126/76 12/07/19 10:15 Pulse Ox 93 L 12/07/19 10:15 - COMMENTS/OBSERVATIONS Free Text/Narrative:: no anesthesia complications noted
[2019-12-07 11:43] VITALS: BP 111/70; PULSE 68
== END | disposition home or self-care (01) ==
LOC: JD.SDS 06:50
PROVIDERS: ATTEND Surgery
DX: D12.1 Benign neoplasm of appendix (principal); I10 Essential (primary) hypertension; K66.0 Peritoneal adhesions (postprocedural) (postinfection); F41.9 Anxiety disorder, unspecified; F17.200 Nicotine dependence, unspecified, uncomplicated; F32.9 Major depressive disorder, single episode, unspecified; E66.9 Obesity, unspecified; Z88.8 Allergy status to other drugs, medicaments and biological substances; Z79.899 Other long term (current) drug therapy; Z68.34 Body mass index [BMI] 34.0-34.9, adult
CPT/HCPCS: 44970; J0690; J0694; J1170; J2001; J2250; J2405; J2704; J3010; J3490; J7120; 00840

== ENCOUNTER 2020-03-03 20:06 | Emergency (ER) | payer BC ==
[2020-03-03 20:22] VITALS: BP 159/91; PULSE 81
--- NOTE | 2020-03-03 21:08 | EDM.PDOC ---
ED HPI GENERAL MEDICAL PROBLEM - General Chief Complaint: Skin Complaint Stated Complaint: STITCHES CAME OUT AFTER 2 DAYS Time Seen by Provider: 03/03/20 20:10 Source of Information: Reports: Patient History Limitations: Reports: No Limitations - History of Present Illness INITIAL COMMENTS - FREE TEXT/NARRATIVE: Pt is a 59 year old male who presents to the ER with c/o his sutures coming undone. He had a lesion removed from his right forearm by Dr. Adair two days ago. It was a 6mm punch that was used the remove the lesion. The wound was closed with 2 sutures that the patient states he was to leave in for 1 week. This evening he layed down in bed and was lying on his arm when the sutures became untied and opened He has had no bleeding or drainage from the wound. - Related Data Allergies Allergy/AdvReac Type Severity Reaction Status Date / Time celecoxib [From Celebrex] Allergy Rash Verified 03/03/20 20:18 Home Meds: Home Meds Cholecalciferol (Vitamin D3) [Vitamin D3] 10,000 unit PO DAILY 03/29/19 [History] Escitalopram Oxalate 20 mg PO DAILY 03/29/19 [History] Ferrous Sulfate [Iron] 325 mg PO DAILY 03/29/19 [History] Lansoprazole [Prevacid] 15 mg PO DAILY 03/29/19 [History] Losartan Potassium 100 mg PO DAILY 03/29/19 [History] Multivitamin [Daily Multiple Vitamin] 1 tab PO DAILY 03/29/19 [History] buPROPion HCL [Wellbutrin Xl] 150 mg PO DAILY 11/29/19 [History] Past Medical History HEENT History: Reports: Allergic Rhinitis, Impaired Vision Other HEENT History: uses reading glasses Cardiovascular History: Reports: Hypertension Respiratory History: Reports: Sleep Apnea Gastrointestinal History: Reports: GERD, Hemorrhoids, Other (See Below) Other Gastrointestinal History: elevated LFTs Genitourinary History: Reports: Renal Calculus Other Genitourinary History: frequency HHAS History: Reports: None Musculoskeletal History: Reports: Back Pain, Chronic Other Musculoskeletal History: degenerative disc disease, muscle cramps Neurological History: Reports: Other (See Below) Other Neuro History: degenerative disc disease, lumbar back pain Psychiatric History: Reports: Addiction, Anxiety, Depression Endocrine/Metabolic History: Reports: Obesity/BMI 30+, Vitamin D Deficiency Hematologic History: Reports: None, Iron Deficiency Immunologic History: Reports: None Oncologic (Cancer) History: Reports: None Dermatologic History: Reports: None - Infectious Disease History Infectious Disease History: Reports: None - Past Surgical History Head Surgeries/Procedures: Reports: None HEENT Surgical History: Reports: Adenoidectomy, LASIK, Oral Surgery, Tonsillectomy, Other (See Below) Other HEENT Surgeries/Procedures: uvulectomy Cardiovascular Surgical History: Reports: None Respiratory Surgical History: Reports: None GI Surgical History: Reports: Appendectomy, Colonoscopy Male Surgical History: Reports: Vasectomy Endocrine Surgical History: Reports: None Neurological Surgical History: Reports: Laminectomy Musculoskeletal Surgical History: Reports: Arthroscopic Knee, Knee Replacement, Shoulder Surgery Other Musculoskeletal Surgeries/Procedures:: L knee arthroscopy, knee surgery, shoulder surgery, back surgery Oncologic Surgical History: Reports: None Dermatological Surgical History: Reports: None Social & Family History - Family History Family Medical History: Noncontributory Oncologic: Reports: Lung - Tobacco Use Smoking Status *Q: Former Smoker Used Tobacco, but Quit: Yes Month/Year Tobacco Last Used: 08/2009 - Caffeine Use Caffeine Use: Reports: Coffee - Recreational Drug Use Recreational Drug Use: No - Living Situation & Occupation Living situation: Reports: , with Spouse Occupation: Employed ([employer]) ED ROS GENERAL - Review of Systems Review Of Systems: Comprehensive ROS is negative, except as noted in HPI. ED EXAM, SKIN/RASH Exam: See Below Exam Limited By: No Limitations General Appearance: Alert, WD/WN, No Apparent Distress Respiratory/Chest: No Respiratory Distress, Lungs Clear, Normal Breath Sounds, No Accessory Muscle Use, Chest Non-Tender Cardiovascular: Normal Peripheral Pulses, Regular Rate, Rhythm, No Edema, No Ga llop, No JVD, No Murmur, No Rub Skin: Other (6mm round, punch incision. Wound is open. sutures are still present but are untied. No redness or bleeding to the site.) Course - Vital Signs Last Recorded V/S: Last Vital Signs Temp 98.6 F 03/03/20 20:20 Pulse 81 03/03/20 20:20 Resp 17 03/03/20 20:20 BP 159/91 H 03/03/20 20:20 Pulse Ox 97 03/03/20 20:20 - Re-Assessments/Exams Free Text/Narrative Re-Assessment/Exam: Patient's incision site was cleaned with saline and CHG soap. The old sutures were removed. There is no active bleeding, however the wound was mildly gaping. Wound was closed using a Steri-Strip with Mastisol. Edges were well approximated beneath the Steri-Strip. Discussed wound care with the patient. Discharge instructions document. Departure - Departure Time of Disposition: 21:07 Disposition: Home, Self-Care 01 Condition: Good Clinical Impression: Encounter for wound re-check - Discharge Information *PRESCRIPTION DRUG MONITORING PROGRAM REVIEWED*: No *COPY OF PRESCRIPTION DRUG MONITORING REPORT IN PATIENT ARABELLA: No Referrals: Coco Medrano MD [Primary Care Provider] - Additional Instructions: You were seen in the emergency department this evening after the sutures to your incision on your right forearm came untied. The sutures were removed and the wound was cleansed. A Steri-Strip was applied to hold the wound closed. This will fall off on its own over the next few days. You may shower as normal, but do not submerge your arm underwater. Watch for signs of infection including increased redness, swelling, or purulent drainage. If this should occur, you should be evaluated either in the clinic or the ER. Return to the ER as needed. Sepsis Event Note (ED) - Evaluation Sepsis Screening Result: No Definite Risk - Focused Exam Vital Signs: Vital Signs Temp Pulse Resp BP Pulse Ox 03/03/20 20:20 98.6 F 81 17 159/91 H 97
== END 2020-03-03 21:15 | disposition home or self-care (01) ==
LOC: JD.ED 20:06
DX: Z48.817 Encounter for surgical aftercare following surgery on the skin and subcutaneous tissue (principal); I10 Essential (primary) hypertension; K21.9 Gastro-esophageal reflux disease without esophagitis; F41.9 Anxiety disorder, unspecified; F32.9 Major depressive disorder, single episode, unspecified; E66.9 Obesity, unspecified; Z68.34 Body mass index [BMI] 34.0-34.9, adult; Z88.8 Allergy status to other drugs, medicaments and biological substances; Z79.899 Other long term (current) drug therapy; Z87.891 Personal history of nicotine dependence
CPT/HCPCS: 99282

== ENCOUNTER 2020-10-24 10:11 | Emergency (ER) | payer BC ==
[2020-10-24 10:21] VITALS: BP 145/83; PULSE 76
--- NOTE | 2020-10-24 11:24 | EDM.PDOC ---
ED HPI GENERAL MEDICAL PROBLEM - General Chief Complaint: Lower Extremity Injury/Pain Stated Complaint: RT KNEE PAIN Time Seen by Provider: 10/24/20 10:25 Source of Information: Reports: Patient History Limitations: Reports: No Limitations - History of Present Illness INITIAL COMMENTS - FREE TEXT/NARRATIVE: The patient presents with right knee pain. He said 2 night ago he went to bed and when crawling into bed he had mild pain to the right knee. The next day he was doing good. This morning he had more pain and walked into his kitchen and turned and he heard a pop and had severe pain to the right knee. He cannot bear weight on it now. He has a knee replacement to the left knee. He has not had trouble with that knee before. Onset: Sudden Duration: Hour(s): Location: Reports: Lower Extremity, Right (knee) Quality: Reports: Sharp Severity: Moderate Improves with: Reports: Immobilization Worsens with: Reports: Movement Context: Denies: Trauma Associated Symptoms: Reports: No Other Symptoms Right Knee Pain Score (Numeric/FACES): 10 - Related Data Allergies Allergy/AdvReac Type Severity Reaction Status Date / Time celecoxib [From Celebrex] Allergy Rash Verified 10/24/20 10:18 Home Meds: Home Meds Cholecalciferol (Vitamin D3) [Vitamin D3] 10,000 unit PO DAILY 03/29/19 [History] Escitalopram Oxalate 20 mg PO DAILY 03/29/19 [History] Lansoprazole [Prevacid] 15 mg PO DAILY 03/29/19 [History] Losartan Potassium 100 mg PO DAILY 03/29/19 [History] buPROPion HCL [Wellbutrin Xl] 150 mg PO DAILY 11/29/19 [History] Ascorbic Acid [Vitamin C] 500 mg PO DAILY 10/24/20 [History] Hydrocodone/Acetaminophen [Hydrocodone-Acetamin 5-325 mg] 1 - 2 each PO Q6HR PRN #15 tablet 10/24/20 [Rx] Ibuprofen 800 mg PO ONCALL PRN 10/24/20 [History] Past Medical History HEENT History: Reports: Allergic Rhinitis, Impaired Vision Other HEENT History: uses reading glasses Cardiovascular History: Reports: Hypertension Respiratory History: Reports: Sleep Apnea Gastrointestinal History: Reports: GERD, Hemorrhoids, Other (See Below) Other Gastrointestinal History: elevated LFTs Genitourinary History: Reports: Renal Calculus Other Genitourinary History: frequency 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 Musculoskeletal History: Reports: Back Pain, Chronic Other Musculoskeletal History: degenerative disc disease, muscle cramps Neurological History: Reports: Other (See Below) Other Neuro History: degenerative disc disease, lumbar back pain Psychiatric History: Reports: Addiction, Anxiety, Depression Endocrine/Metabolic History: Reports: Obesity/BMI 30+, Vitamin D Deficiency Hematologic History: Reports: None, Iron Deficiency Immunologic History: Reports: None Oncologic (Cancer) History: Reports: None Dermatologic History: Reports: None - Infectious Disease History Infectious Disease History: Reports: None - Past Surgical History Head Surgeries/Procedures: Reports: None HEENT Surgical History: Reports: Adenoidectomy, LASIK, Oral Surgery, Tonsillectomy, Other (See Below) Other HEENT Surgeries/Procedures: uvulectomy Cardiovascular Surgical History: Reports: None Respiratory Surgical History: Reports: None GI Surgical History: Reports: Appendectomy, Colonoscopy Male Surgical History: Reports: Vasectomy Endocrine Surgical History: Reports: None Neurological Surgical History: Reports: Laminectomy Musculoskeletal Surgical History: Reports: Arthroscopic Knee, Knee Replacement, Shoulder Surgery Other Musculoskeletal Surgeries/Procedures:: L knee arthroscopy, knee surgery, shoulder surgery, back surgery Oncologic Surgical History: Reports: None Dermatological Surgical History: Reports: None Social & Family History - Family History Family Medical History: No Pertinent Family History Oncologic: Reports: Lung - Tobacco Use Tobacco Use Status *Q: Current Every Day Tobacco User Years of Tobacco use: 40 Packs/Tins Daily: 0.1 - Caffeine Use Caffeine Use: Reports: Coffee - Recreational Drug Use Recreational Drug Use: No - Living Situation & Occupation Living situation: Reports: , with Spouse Occupation: Employed ([employer]) Review of Systems - Review of Systems Review Of Systems: See Below Constitutional: Reports: No Symptoms Eyes: Reports: No Symptoms Ears: Reports: No Symptoms Nose: Reports: No Symptoms Mouth/Throat: Reports: No Symptoms Respiratory: Reports: No Symptoms Cardiovascular: Reports: No Symptoms GI/Abdominal: Reports: No Symptoms Genitourinary: Reports: No Symptoms Musculoskeletal: Reports: Other (right knee pain) ED EXAM, GENERAL - Physical Exam Exam: See Below Exam Limited By: No Limitations General Appearance: Alert, No Apparent Distress Ears: Normal External Exam Nose: Normal Inspection Throat/Mouth: Normal Inspection Head: Atraumatic, Normocephalic Neck: Normal Inspection Respiratory/Chest: No Respiratory Distress Extremities: Other (No pain upon palpation to the knee, no edema, good sensation and pulsed distally. Pain with stressing of the ACL and PCL ligaments but it feels stable.) Course - Vital Signs Last Recorded V/S: Last Vital Signs Temp 97.9 F 10/24/20 10:18 Pulse 76 10/24/20 10:18 Resp 15 10/24/20 10:18 BP 145/83 H 10/24/20 10:18 Pulse Ox 96 10/24/20 10:18 - Orders/Labs/Meds Orders: Active Orders 24 hr Category Date Time Status CRP [C-REACTIVE PROTEIN] [CHEM] Stat Lab 10/24/20 11:14 Received URIC ACID [CHEM] Stat Lab 10/24/20 11:14 Received Labs: Laboratory Tests 10/24/20 Range/Units 11:14 ESR 2 (0-15) mm/hr - Re-Assessments/Exams Free Text/Narrative Re-Assessment/Exam: 10/24/20 11:29 His x-ray shows mild degenerative changes. 10/24/20 11:51 I have ordered an MRI of his right knee for Wednesday at 8am. He will see Dr Babcock later in the week. [facility] will call him. Departure - Departure Time of Disposition: 11:55 Disposition: Home, Self-Care 01 Condition: Good Clinical Impression: Right knee sprain Qualifiers: Encounter type: initial encounter Involved ligament of knee: unspecified ligament Qualified Code(s): S83.91XA - Sprain of unspecified site of right knee, initial encounter - Discharge Information *PRESCRIPTION DRUG MONITORING PROGRAM REVIEWED*: Not Applicable *COPY OF PRESCRIPTION DRUG MONITORING REPORT IN PATIENT ARABELLA: Not Applicable Prescriptions: Hydrocodone/Acetaminophen [Hydrocodone-Acetamin 5-325 mg] 1 - 2 each PO Q6HR PRN #15 tablet PRN Reason: Pain Referrals: Coco Medrano MD [Primary Care Provider] - Arnie Babcock MD [Physician] - 1 Week Forms: ED Department Discharge, ED Return to Work/School Form Additional Instructions: Wear the knee immobilizer for comfort and use the crutches as needed. Take tylenol or motrin as needed for pain. If that does not help, try the hydrocodone. Ice your knee for 15 minutes 3 times per day for 2 days. Elevate your leg as much as you can for 2 days. I have ordered an MRI of your knee for Wednesday at 8am. Please come early to register. Someone from Dr Babcock's office will call you with an appointment time. Please return if you are worse. Sepsis Event Note (ED) - Evaluation Sepsis Screening Result: No Definite Risk - Focused Exam Vital Signs: Vital Signs Temp Pulse Resp BP Pulse Ox 10/24/20 10:18 97.9 F 76 15 145/83 H 96 - My Orders Last 24 Hours: My Active Orders 10/24/20 11:14 CRP [C-REACTIVE PROTEIN] [CHEM] Stat URIC ACID [CHEM] Stat - Assessment/Plan Last 24 Hours: My Active Orders 10/24/20 11:14 CRP [C-REACTIVE PROTEIN] [CHEM] Stat URIC ACID [CHEM] Stat
--- NOTE | 2020-10-24 11:45 | CR ---
Right knee: 4 views of the right knee were obtained. Comparison: No prior right knee exam is available. Medial and lateral joint compartments are maintained in height. No joint effusion is seen. No acute fracture or other bony abnormality is appreciated. Impression: 1. Nothing acute is seen on right knee exam. Diagnostic code #1
== END 2020-10-24 12:30 | disposition home or self-care (01) ==
LOC: JD.ED 10:11
DX: S83.91XA Sprain of unspecified site of right knee, initial encounter (principal); I10 Essential (primary) hypertension; K21.9 Gastro-esophageal reflux disease without esophagitis; E66.9 Obesity, unspecified; Z68.36 Body mass index [BMI] 36.0-36.9, adult; Z96.652 Presence of left artificial knee joint; Z72.0 Tobacco use; Z88.1 Allergy status to other antibiotic agents; Z79.899 Other long term (current) drug therapy; X58.XXXA Exposure to other specified factors, initial encounter; Y93.01 Activity, walking, marching and hiking; Y92.000 Kitchen of unspecified non-institutional (private) residence as the place of occurrence of the external cause
CPT/HCPCS: 36415; 73564-26-RT; 73564-RT; 84550; 85652; 86140; 99283; 99283-25

== ENCOUNTER 2021-05-05 09:30 | Day surgery (SDC) | payer BC ==
[~2021-05-05 09:30] MED LIST changes: -HYDROmorphone 0.5 MG/0.5 ML Syringe ONE; -Lidocaine 1% 4 ML ONE; -Midazolam 1 MG/ML 2 ML SDV ONE; +Morphine 8 MG, EPINEPHrine 0.3 MG, Cefuroxime 750 MG, Ketorolac 30 MG, Sodium Chloride ... PRN; -Ondansetron 4 MG/2 ML SDV ONE; -Propofol 200 MG/20 ML SDV ONE; -Rocuronium 50 MG/5 ML Vial ONE; -ceFAZolin 1 GM Vial ONE; -fentaNYL 100 MCG/2 ML SDV IVPUSH PRN; -fentaNYL 250 MCG/5 ML SDV ONE; -oxyCODONE 5 MG Tab PO SCH
[2021-05-05] MEDS ORDERED: oxyCODONE ER 10 MG TAB.ER PO ONE (09:45)
[2021-05-05] MEDS ORDERED: Pregabalin 25 MG Cap PO ONE (09:45)
[2021-05-05] MEDS ORDERED: Acetaminophen 325 MG Tab PO ONE (09:45)
[2021-05-05] MEDS ORDERED: Vancomycin 1 GM SDV ONE (10:19)
--- NOTE | 2021-05-05 10:24 | PCM.PREANE ---
Preanesthetic Assessment - Procedure Proposed Procedure: Right total knee arthroplasty - Anesthesia/Transfusion/Family Hx Anesthesia History: Prior Anesthesia Reaction Family History of Anesthesia Reaction: No Transfusion History: No Prior Transfusion(s) Intubation History: Unknown - Review of Systems General: No Symptoms Pulmonary: No Symptoms Cardiovascular: No Symptoms Gastrointestinal: No Symptoms Neurological: No Symptoms Other: Reports: None - Physical Assessment NPO Status Date: 05/04/21 NPO Status Time: 00:00 Vital Signs: Last Vital Signs Temp 36.2 C 05/05/21 10:04 Pulse Resp BP Pulse Ox Height: 1.78 m Weight: 116 kg ASA Class: 3 Mental Status: Alert & Oriented x3 Airway Class: Mallampati = 2 Dentition: Reports: Normal Dentition, [place](s) Thyro-Mental Finger Breadths: 2 Mouth Opening Finger Breadths: 2 ROM/Head Extension: Full Lungs: Clear to Auscultation, Normal Respiratory Effort Cardiovascular: Regular Rate, Regular Rhythm - Imaging/EKG Impressions: EKG SR rate 72 - Allergies Allergies/Adverse Reactions: Allergies Allergy/AdvReac Type Severity Reaction Status Date / Time celecoxib [From Celebrex] Allergy Rash Verified 05/02/21 17:45 - Anesthesia Plan Pre-Op Medication Ordered: None - Acknowledgements Anesthesia Type Planned: Spinal Pt an Appropriate Candidate for the Planned Anesthesia: Yes Alternatives and Risks of Anesthesia Discussed w Pt/Guardian: Yes Pt/Guardian Understands and Agrees with Anesthesia Plan: Yes PreAnesthesia Questionnaire HEENT History: Reports: Allergic Rhinitis, Impaired Vision Other HEENT History: uses reading glasses Cardiovascular History: Reports: Hypertension Respiratory History: Reports: Sleep Apnea Gastrointestinal History: Reports: GERD, Hemorrhoids, Other (See Below) Other Gastrointestinal History: elevated LFTs Genitourinary History: Reports: Renal Calculus Other Genitourinary History: frequency 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 Musculoskeletal History: Reports: Back Pain, Chronic Other Musculoskeletal History: degenerative disc disease, muscle cramps Neurological History: Reports: Other (See Below) Other Neuro History: degenerative disc disease, lumbar back pain Psychiatric History: Reports: Addiction, Anxiety, Depression Endocrine/Metabolic History: Reports: Obesity/BMI 30+, Vitamin D Deficiency Hematologic History: Reports: None, Iron Deficiency Immunologic History: Reports: None Oncologic (Cancer) History: Reports: None Dermatologic History: Reports: None - Infectious Disease History Infectious Disease History: Reports: None - Past Surgical History Head Surgeries/Procedures: Reports: None HEENT Surgical History: Reports: Adenoidectomy, LASIK, Oral Surgery, Tonsillectomy, Other (See Below) Other HEENT Surgeries/Procedures: uvulectomy Cardiovascular Surgical History: Reports: None Respiratory Surgical History: Reports: None GI Surgical History: Reports: Appendectomy, Colonoscopy Male Surgical History: Reports: Vasectomy Endocrine Surgical History: Reports: None Neurological Surgical History: Reports: Laminectomy Musculoskeletal Surgical History: Reports: Arthroscopic Knee, Knee Replacement, Shoulder Surgery Other Musculoskeletal Surgeries/Procedures:: L knee arthroscopy, knee surgery, shoulder surgery, back surgery Oncologic Surgical History: Reports: None Dermatological Surgical History: Reports: None - SUBSTANCE USE Tobacco Use Status *Q: Never Tobacco User Tobacco Use Within Last Twelve Months: No Second Hand Smoke Exposure: No Days Per Week of Alcohol Use: 0 Number of Drinks Per Day: 0 Total Drinks Per Week: 0 Recreational Drug Use History: No - HOME MEDS Home Medications: Home Meds Cholecalciferol (Vitamin D3) [Vitamin D3] 5,000 unit PO DAILY 03/29/19 [History] Escitalopram Oxalate 20 mg PO DAILY 03/29/19 [History] Lansoprazole [Prevacid] 15 mg PO DAILY 03/29/19 [History] Losartan Potassium 100 mg PO DAILY 03/29/19 [History] buPROPion HCL [Wellbutrin Xl] 300 mg PO DAILY 11/29/19 [History] Ascorbic Acid [Vitamin C] 500 mg PO DAILY 10/24/20 [History] Aspirin [Aspirin EC] 325 mg PO BID #60 tab 05/02/21 [Rx] Cyclobenzaprine [Flexeril] 10 mg PO BID PRN #20 tab 05/02/21 [Rx] oxyCODONE 5 - 10 mg PO Q4H PRN #40 tab 05/02/21 [Rx] - CURRENT (IN HOUSE) MEDS Current Meds: Current Medications Morphine Sulfate 8 mg/Epinephrine HCl 0.3 mg/Cefuroxime Sodium 750 mg/Ketorolac Tromethamine 30 mg/Sodium Chloride 7.9 ml 0 mg .XX ASDIRECTED PRN PRN Reason: Pain Stop: 05/05/21 16:00 Lactated Ringer's (Ringers, Lactated) 1,000 mls @ 125 mls/hr IV ASDIRECTED JUDI Stop: 05/05/21 23:00 Lidocaine/Sodium Bicarbonate (Lidocaine 1%/Sod Bicarbonate In Ns 8.4% 1 Ml Syringe) 0.25 ml IDERM ONETIME PRN PRN Reason: Prior to IV Start Stop: 05/05/21 18:00 Sodium Chloride (Sodium Chloride 0.9% 10 Ml Syringe) 10 ml FLUSH ASDIRECTED PRN PRN Reason: Keep Vein Open Stop: 05/05/21 18:00 Discontinued Medications Acetaminophen (Acetaminophen 325 Mg Tab) 975 mg PO NOW ONE Stop: 05/05/21 09:46 Last Admin: 05/05/21 10:04 Dose: 975 mg Documented by: Oxycodone HCl (Oxycodone Er 10 Mg Tab.Er) 10 mg PO ONETIME ONE Stop: 05/05/21 09:46 Last Admin: 05/05/21 10:04 Dose: 10 mg Documented by: Pregabalin (Pregabalin 25 Mg Cap) 50 mg PO ONETIME ONE Stop: 05/05/21 09:46 Last Admin: 05/05/21 10:04 Dose: 50 mg Documented by:
[2021-05-05] MEDS ORDERED: Propofol 200 MG/20 ML SDV ONE ×3 (10:31→12:20)
[2021-05-05] MEDS ORDERED: Ondansetron 4 MG/2 ML SDV ONE (10:31)
[2021-05-05] MEDS ORDERED: fentaNYL 100 MCG/2 ML SDV ONE (10:31)
[2021-05-05] MEDS ORDERED: Midazolam 1 MG/ML 2 ML SDV ONE (10:31)
[2021-05-05] MEDS ORDERED: Lidocaine 1% 4 ML ONE (10:32)
[2021-05-05] MEDS ORDERED: ceFAZolin 1 GM Vial ONE (10:35)
[2021-05-05] MEDS ORDERED: Lactated Ringers 1,000 ML ONE (11:53)
--- NOTE | 2021-05-05 13:06 | PCM.POSTAN ---
POST ANESTHESIA ASSESSMENT - MENTAL STATUS Mental Status: Somnolent - VITAL SIGNS Vital Signs: Last Vital Signs Temp 36.2 C 05/05/21 10:04 Pulse 76 05/05/21 09:30 Resp 16 05/05/21 09:30 BP 139/83 05/05/21 09:30 Pulse Ox 96 05/05/21 09:30 - RESPIRATORY Respiratory Status: Respiratory Rate WNL, Airway Patent, O2 Saturation Stable, Supplemental Oxygen - CARDIOVASCULAR CV Status: Pulse Rate WNL, Blood Pressure Stable - GASTROINTESTINAL GI Status: No Symptoms - PAIN Pain Score: 0 - POST OP HYDRATION Hydration Status: Adequate & Stable - OBSERVATIONS Free Text/Narrative:: no anesthesia complications noted
[2021-05-05] MEDS ORDERED: EPINEPHrine 1 MG/ML SDV ONE (13:09)
[2021-05-05] MEDS ORDERED: Ropivacaine 0.5% 5 MG/ML 30 ML SDV ONE (13:09)
--- NOTE | 2021-05-05 13:44 | PCM.SN.2 ---
- Free Text/Narrative Note: Right selective femoral nerve block at the adductor canal for post-procedure pain control under US guidance requested by Dr. Babcock. Time Out: 1314 Start: 1315 End: 1321 Chart reviewed. Consent signed. Questions answered. Appropriate monitors applied. Time out performed. Right mid-shaft femur identified with ultrasound, scanning medially of femur, the femoral artery in the adductor canal visualized, and the femoral nerve located laterally to the artery. The skin was prepped lateral to the ultrasound probe with chlorahexadine times two. The 21ga 4 insulated block needle was inserted under direct ultrasound guidance into the adductor canal. 20mL of 0.5% ropivacaine with 1:200,000 epinephrine was injected circumferentially around the nerve with intermittent negative aspiration noted. Patient tolerated the procedure well. Sterile technique noted along with sterile gloves, mask, and sterile probe cover. See picture on progress note and vital signs on nurses notes. Block completed in PACU. Rigo Odonnell CRNA Time Documentation
--- NOTE | 2021-05-05 13:59 | CR ---
Right knee: AP and crosstable lateral views of the right knee were obtained. Comparison: Prior right knee CT study of 04/23/21. Knee prosthesis is noted. Patellar prosthesis is also noted. Components are aligned. Soft tissue air is seen. No underlying bony abnormality is otherwise seen. Impression: 1. Satisfactory postoperative radiographic appearance of right knee prostheses. Diagnostic code #2
--- NOTE | 2021-05-05 14:11 | PCM48HPAN ---
Post Anesthesia Note - EVALUATION WITHIN 48HRS OF ANESTHETIC Vital Signs in Normal Range: Yes Patient Participated in Evaluation: Yes Respiratory Function Stable: Yes Airway Patent: Yes Cardiovascular Function Stable: Yes Hydration Status Stable: Yes Pain Control Satisfactory: Yes Nausea and Vomiting Control Satisfactory: Yes Mental Status Recovered: Yes Vital Signs: Last Vital Signs Temp 36.1 C 05/05/21 13:50 Pulse 76 05/05/21 09:30 Resp 10 L 05/05/21 13:50 BP 100/63 05/05/21 13:50 Pulse Ox 99 05/05/21 13:50
[2021-05-05 16:07] VITALS: BP 99/59; PULSE 73
--- NOTE | 2021-05-13 17:44 | PCM.OPNOTE ---
- General Post-Op/Procedure Note Date of Surgery/Procedure: 05/05/21 Operative Procedure(s): right total knee arthroplasty with [employer] robot[employer] Pre Op Diagnosis: right total knee arthroplasty Post-Op Diagnosis: Same Anesthesia Technique: Local, MAC, Spinal Primary Surgeon: Arnie Babcock Anesthesia Provider: Rigo Odonnell Architectural Job Captain: Radha Bell Architectural Job Captain: Erin Reyes EBL in mLs: 50 Complications: None Condition: Good Free Text/Narrative:: 5 femur 4 9mm 32x10
--- NOTE | 2021-05-19 11:50 | OR ---
DATE OF OPERATION: 05/05/2021 SURGEON: Arnie Babcock MD OPERATION PERFORMED: Right total knee arthroplasty with [employer] robot[employer]. PREOPERATIVE DIAGNOSIS: Right knee osteoarthrosis. POSTOPERATIVE DIAGNOSIS: Right knee osteoarthrosis. ANESTHESIA: Local MAC with spinal. ANESTHESIA PROVIDER: Chris Peña. ASSISTANTS: 1. Radha Bell PA-C. 2. Erin Reyes LPN. ESTIMATED BLOOD LOSS: 50 mL. COMPLICATIONS: None. CONDITION: Stable. IMPLANT: 1. Seaforth size 5 press-fit CR femur. 2. Steffanie size 4 press-fit tibial baseplate. 3. Steffanie size 4, 9 mm CS polyethylene insert. 4. Seaforth size 32 x 10 mm press-fit asymmetric patella. DESCRIPTION OF PROCEDURE: The patient was identified in the preoperative holding area. Proper site was marked and identified by the surgeon. The patient was taken back to the operating theater where, after adequate anesthesia, the patient had a nonsterile tourniquet applied to the right lower extremity. The right lower extremity was then sterilely prepped and draped in the usual sterile fashion. OR time-out was performed. The patient received 2 g of IV Ancef. A leg kidd was applied. The right lower extremity was exsanguinated. Tourniquet was insufflated to 250 mmHg. Standard anterior incision was made. A medial parapatellar arthrotomy was created. Deep fibers of the MCL were raised, and anterior fat pad was resected. Attention was turned to the patella. Patella measured 25, resected to a 14 for a 32 x 10 mm patella. Drill holes were drilled. At this time, two 4.0 Schanz pins were placed intra-incisionally on the femur, 2 more were placed in the tibia 3 fingerbreadths below the tibial tubercle. A [employer] [place] robotic arrays were placed as well as checkpoints on the femur and the tibia. Hip center rotation was obtained. Medial and lateral malleoli were marked. Check points were then marked. 40 points were obtained on both the femur and the tibia for the Steffanie Federico robotic plan. The patient's knee was brought into full extension. Varus and valgus stresses were applied and then 90 degrees of flexion. [employer] Fed[employer] robotic plan for symmetric flexion and extension gaps was then undertaken. Straight saw blade was then brought in. Tibial cut was completed. The anterior femoral cut, anterior chamfer cut, and posterior femoral cuts were completed. Saw blade was then switched, and the distal femoral cut and posterior chamfer cuts were completed. All bony fragments were removed. Medial and lateral meniscus were resected as well as any posterior osteophytes. The size 4 trial baseplate was then placed on the tibia. Size 5 trial femur was placed, and a 9 mm trial spacer was placed. The patient had full extension and flexion. No signs of varus and valgus instability, and no signs of liftoff on the femur. At this time, drill holes were drilled in the femur. Tibia was stamped and drilled in proper rotation. All trial implants were removed. The size 4 tibial baseplate was impacted in place. Size 5 femur was impacted in place. A 9 mm CS polyethylene insert was placed. The patient's knee was brought to full extension, and a 32 x 10 mm press-fit patella was press- fit into place. The tourniquet was deflated. Bleeders were cauterized. 1 L of pulse lavage irrigation with Ancef was irrigated through the knee along with 400 mL Irrisept irrigation. Topical tranexamic acid and vancomycin powder were applied. Periarticular injection was completed. A #2 barbed suture was used for closure of the medial parapatellar arthrotomy. 2-0 Vicryl and Stratafix were used for subcutaneous closure, and Prineo was used for skin closure. Please note, all pins and check points were removed before closure. The patient had a sterile soft dressing applied and was sent to PACU in stable condition. MMODAL /[id number]
== END 2021-05-05 15:38 | disposition home or self-care (01) ==
LOC: JD.SDS 09:30
PROVIDERS: ATTEND Orthopaedic Surgery
DX: M17.11 Unilateral primary osteoarthritis, right knee (principal); K21.9 Gastro-esophageal reflux disease without esophagitis; I10 Essential (primary) hypertension; G47.33 Obstructive sleep apnea (adult) (pediatric); E66.9 Obesity, unspecified; E55.9 Vitamin D deficiency, unspecified; F41.9 Anxiety disorder, unspecified; R74.8 Abnormal levels of other serum enzymes; G89.29 Other chronic pain; G89.18 Other acute postprocedural pain; Z20.822 Contact with and (suspected) exposure to COVID-19; Z88.8 Allergy status to other drugs, medicaments and biological substances; Z79.899 Other long term (current) drug therapy; Z90.49 Acquired absence of other specified parts of digestive tract; Z98.890 Other specified postprocedural states; Z87.891 Personal history of nicotine dependence; Z68.37 Body mass index [BMI] 37.0-37.9, adult
CPT/HCPCS: 27447; 73560; 97116; 97161; A9270; C1713; C1776; J0171; J0690; J2250; J2370; J2405; J2704; J2795; J3010; J3370; J7120; 01402; 64450; 76942

== ENCOUNTER 2022-02-02 06:44 | Emergency (ER) | payer OTHER ==
[2022-02-02 16:37] VITALS: BP 135/82; PULSE 62
== END 2022-02-02 10:25 | disposition home or self-care (01) ==
LOC: JD.ED 06:44
DX: S01.01XA Laceration without foreign body of scalp, initial encounter (principal); I10 Essential (primary) hypertension; E66.9 Obesity, unspecified; Z68.30 Body mass index [BMI] 30.0-30.9, adult; Z88.1 Allergy status to other antibiotic agents; Z79.82 Long term (current) use of aspirin; Z79.899 Other long term (current) drug therapy; W06.XXXA Fall from bed, initial encounter
CPT/HCPCS: 12001; 70450; 70450-26; 99283; 99283-25

== ENCOUNTER 2024-12-02 07:38 | Emergency (ER) | payer BC, OTHER ==
[2024-12-02 07:54] VITALS: BP 114/69; PULSE 84
[2024-12-02] MEDS ORDERED: Sodium Chloride 0.9% 10 ML Syringe FLUSH PRN (08:13)
[2024-12-02 08:37] LABS: BASOPHILS PERCENT AUTO 0.3 % (0.0-1.0); EOSINOPHILS ABSOLUTE AUTO 0.1 K/mm3 (0.0-0.4); EOSINOPHILS PERCENT AUTO 1.2 % (0.0-6.0); HEMATOCRIT 42.6 % (42.0-52.0); HEMOGLOBIN 14.5 gm/dl (14.0-18.0); IMMATURE GRAN ABSOLUTE AUTO 0.02 K/mm3 (0.00-0.05); IMMATURE GRAN PERCENT AUTO 0.3 % (0.0-0.4); LYMPHOCYTES ABSOLUTE AUTO 0.8 K/mm3 (1.0-4.8); LYMPHOCYTES PERCENT AUTO 13.8 % (24.0-44.0); MEAN CORPUSCULAR HEMOGLOBIN 30.5 pg (28.0-32.0); MEAN CORPUSCULAR VOLUME 89.5 fl (83.0-99.0); MEAN PLATELET VOLUME 8.3 fl (9.4-12.4); MONOCYTES ABSOLUTE AUTO 0.6 K/mm3 (0.0-0.8); MONOCYTES PERCENT AUTO 10.2 % (0.0-8.0); NEUTROPHILS ABSOLUTE AUTO 4.3 K/mm3 (1.8-7.7); NEUTROPHILS PERCENT AUTO 74.2 % (41.0-71.0); PLATELET COUNT,PLT 281 K/mm3 (150-400); RED BLOOD CELL COUNT 4.76 M/mm3 (4.52-5.90); WHITE BLOOD CELL COUNT,WBC 5.81 K/mm3 (3.9-11.3)
[2024-12-02 08:42] LABS: APPEARANCE,URINE TURBID (Clear); BILIRUBIN,URINE 3+ (Negative); COLOR,URINE RED (Yellow); GLUCOSE,URINE TRACE (Negative); KETONES,URINE 2+ (Negative); LEUKOCYTE ESTERASE,URINE 3+ (Negative); NITRITE,URINE NEGATIVE (Negative); OCCULT BLOOD,URINE 3+ (Negative); PROTEIN,URINE 3+ (Negative)
[2024-12-02 08:49] LABS: BACTERIA,URINE FEW /hpf (FEW); MUCUS,URINE NOT SEEN /hpf (FEW); RBC,URINE TOO NUMEROUS TO CNT /hpf (0-5); SQUAMOUS EPITHELIAL CELLS,UR 0-5 /hpf (0-5); WBC,URINE 75-100 /hpf (0-5)
[2024-12-02 09:05] LABS: ALBUMIN 3.4 g/dl (3.4-5.0); ANION GAP 12.7 (5-15); BILIRUBIN TOTAL 0.7 mg/dL (0.2-1.0); BUN/CREATININE RATIO 14.4 (14-18); CALCIUM 8.7 mg/dL (8.5-10.1); CREATININE 0.9 mg/dL (0.7-1.3); EST CRCL DRUG DOSING (CG) 84.49 mL/min; POTASSIUM,K 3.7 mEq/L (3.5-5.1); PROTEIN TOTAL,TP 6.8 g/dl (6.4-8.2)
[2024-12-02] MEDS: Sodium Chloride 0.9% 1,000 ML IV SCH (09:07)
[2024-12-02] MEDS: Levofloxacin 750 MG Tab PO SCH (10:17)
== END 2024-12-02 10:25 | disposition home or self-care (01) ==
LOC: JD.ED 07:38
DX: N30.01 Acute cystitis with hematuria (principal); I10 Essential (primary) hypertension; I48.91 Unspecified atrial fibrillation; E66.9 Obesity, unspecified; Z88.8 Allergy status to other drugs, medicaments and biological substances; Z79.899 Other long term (current) drug therapy; Z79.82 Long term (current) use of aspirin; Z79.02 Long term (current) use of antithrombotics/antiplatelets; Z90.49 Acquired absence of other specified parts of digestive tract; Z68.34 Body mass index [BMI] 34.0-34.9, adult
CPT/HCPCS: 36415; 51798; 80053; 81001; 85025; 87086; 99283; A9270; J7030; 87088; 87186